=== PATIENT | male | born 1945 | race Caucasian/White ===

== ENCOUNTER → 2024-11-01 | Outpatient (CLI) | payer OTHER ==
[~2024-11-01] MED LIST: AMLO5 PO; ASPI81EC PO; ATEN25 PO; Ativan0.5 MG PO; LISI5 PO; OMEP20ER PO; Prednisone20 MG PO; SUCR1 PO; TAMS.4ER PO
[2024-11-01 12:17] LABS: BASOPHILS ABSOLUTE AUTO 0.03 K/mm3 (0.00-0.23); BASOPHILS PERCENT AUTO 1 % (0-2); EOSINOPHILS ABSOLUTE AUTO 0.12 K/mm3 (0.00-0.68); EOSINOPHILS PERCENT AUTO 2 % (0-6); Hematocrit 39.9 % (37.0-53.0); Hemoglobin 14.4 g/dL (13.5-17.5); IMMATURE GRAN ABSOLUTE AUTO 0.02 K/mm3 (0.00-0.10); IMMATURE GRAN PERCENT AUTO 0 % (0-1); LYMPHOCYTES ABSOLUTE AUTO 1.51 K/mm3 (0.84-5.20); LYMPHOCYTES PERCENT AUTO 24 % (21-46); MONOCYTES ABSOLUTE AUTO 0.41 K/mm3 (0.16-1.47); MONOCYTES PERCENT AUTO 7 % (4-13); Mean Corpuscular HGB Conc 36.1 g/dL (31.5-36.5); Mean Corpuscular Volume 94 fL (80-100); Mean Platelet Volume 9.6 fL (9.1-12.4); NEUTROPHILS ABSOLUTE AUTO 4.21 K/mm3 (1.96-9.15); NEUTROPHILS PERCENT AUTO 67 % (41-73); Platelet Count 262 K/mm3 (150-400); RDW Coefficient Variation 12.5 % (11.7-14.2); Red Blood Cell Count 4.24 M/mm3 (4.30-5.90)
[2024-11-01 12:28] LABS: Albumin, Blood 3.7 g/dL (3.4-5.0); Albumin/Globulin Ratio 1.1 (0.8-1.8); Bilirubin, Total 0.5 mg/dL (0.1-1.0); Bun/Creatinine Ratio 22.4 (12.0-20.0); Calcium, Blood 9.1 mg/dL (8.5-10.1); Creatinine, Blood 0.67 mg/dL (0.60-1.20); Globulin, Blood 3.4 g/dL (2.2-4.0); Potassium, Blood 4.9 mmol/L (3.5-5.5); Total Protein, Blood 7.1 g/dL (6.4-8.2)
== END | disposition home or self-care (01) ==
LOC: LAB 12:13 → LAB SHORT 12:13
PROVIDERS: Family Medicine
DX: R07.89 Other chest pain (principal)
CPT/HCPCS: 80053; 84484; 85025

== ENCOUNTER 2024-12-14 19:01 | Inpatient (IN) | payer OTHER ==
[~2024-12-14] VITALS: Ht 172.7 cm; Wt 70.2 kg
[~2024-12-14 19:01] MED LIST changes: +ASPI81CH PO; -ASPI81EC PO
[2024-12-14 19:28] LABS: BASOPHILS ABSOLUTE AUTO 0.04 K/mm3 (0.00-0.23); BASOPHILS PERCENT AUTO 0 % (0-2); EOSINOPHILS ABSOLUTE AUTO 0.08 K/mm3 (0.00-0.68); EOSINOPHILS PERCENT AUTO 1 % (0-6); Hematocrit 38.1 % (37.0-53.0); Hemoglobin 13.8 g/dL (13.5-17.5); IMMATURE GRAN ABSOLUTE AUTO 0.03 K/mm3 (0.00-0.10); IMMATURE GRAN PERCENT AUTO 0 % (0-1); LYMPHOCYTES ABSOLUTE AUTO 1.69 K/mm3 (0.84-5.20); LYMPHOCYTES PERCENT AUTO 16 % (21-46); MONOCYTES ABSOLUTE AUTO 0.69 K/mm3 (0.16-1.47); MONOCYTES PERCENT AUTO 7 % (4-13); Mean Corpuscular HGB 33.3 pg (26.0-34.0); Mean Corpuscular HGB Conc 36.2 g/dL (31.5-36.5); Mean Corpuscular Volume 92 fL (80-100); Mean Platelet Volume 9.3 fL (9.1-12.4); NEUTROPHILS ABSOLUTE AUTO 8.13 K/mm3 (1.96-9.15); NEUTROPHILS PERCENT AUTO 76 % (41-73); Platelet Count 272 K/mm3 (150-400); RDW Coefficient Variation 12.5 % (11.7-14.2); RDW Standard Deviation 42.1 fL (35.1-46.3); Red Blood Cell Count 4.14 M/mm3 (4.30-5.90); White Blood Cell Count 10.66 K/mm3 (4.00-11.30)
[2024-12-14 19:42] LABS: Albumin, Blood 3.9 g/dL (3.4-5.0); Albumin/Globulin Ratio 1.2 (0.8-1.8); Bilirubin, Total 0.8 mg/dL (0.1-1.0); Bun/Creatinine Ratio 27.2 (12.0-20.0); Calcium, Blood 9.3 mg/dL (8.5-10.1); Creatinine, Blood 0.59 mg/dL (0.60-1.20); Globulin, Blood 3.3 g/dL (2.2-4.0); Potassium, Blood 3.8 mmol/L (3.5-5.5); Total Protein, Blood 7.2 g/dL (6.4-8.2)
[2024-12-15] VITALS (10 sets, daily range): BP systolic 124–170; BP diastolic 69–90
[2024-12-15] MEDS ORDERED: FLU VACC TS2024-25(6MOS UP)/PF 45 MCG/0.5 ML SYRINGE IM ONE (00:10)
[2024-12-15] MEDS ORDERED: CARVEDILOL6.25 MG PO (00:12)
[2024-12-15] MEDS ORDERED: EZETIMIBE10 M6 PO (00:12)
[2024-12-15] MEDS ORDERED: PLAVIX75 MG PO (00:12)
[2024-12-15] MEDS ORDERED: SPIRONOLACTONE25 MG PO (00:12)
[2024-12-15] MEDS ORDERED: LOSA25 PO (00:12)
[2024-12-15] MEDS ORDERED: Dose Adjust by Pharmacy XX STA ×3 (00:49→14:17)
[2024-12-15] MEDS ORDERED: Heparin Sodium,Porcine/0.5 NS 500 ML IV SCH (00:50)
[2024-12-15] MEDS ORDERED: NS 1,000 ML IV SCH (01:00)
[2024-12-15] MEDS ORDERED: Clopidogrel Bisulfate 75 MG Tab PO SCH (01:00)
[2024-12-15 01:06] LABS: BASOPHILS ABSOLUTE AUTO 0.02 K/mm3 (0.00-0.23); BASOPHILS PERCENT AUTO 0 % (0-2); EOSINOPHILS ABSOLUTE AUTO 0.09 K/mm3 (0.00-0.68); EOSINOPHILS PERCENT AUTO 1 % (0-6); Hematocrit 36.2 % (37.0-53.0); Hemoglobin 13.1 g/dL (13.5-17.5); IMMATURE GRAN ABSOLUTE AUTO 0.02 K/mm3 (0.00-0.10); IMMATURE GRAN PERCENT AUTO 0 % (0-1); LYMPHOCYTES ABSOLUTE AUTO 2.39 K/mm3 (0.84-5.20); LYMPHOCYTES PERCENT AUTO 29 % (21-46); MONOCYTES ABSOLUTE AUTO 0.64 K/mm3 (0.16-1.47); MONOCYTES PERCENT AUTO 8 % (4-13); Mean Corpuscular HGB 33.6 pg (26.0-34.0); Mean Corpuscular HGB Conc 36.2 g/dL (31.5-36.5); Mean Corpuscular Volume 93 fL (80-100); NEUTROPHILS ABSOLUTE AUTO 5.24 K/mm3 (1.96-9.15); NEUTROPHILS PERCENT AUTO 62 % (41-73); Platelet Count 249 K/mm3 (150-400); RDW Coefficient Variation 12.5 % (11.7-14.2); RDW Standard Deviation 42.6 fL (35.1-46.3)
[2024-12-15 01:23] LABS: Alanine Aminotransfer (ALT/SGP 38 U/L (12-78); Albumin, Blood 3.6 g/dL (3.4-5.0); Albumin/Globulin Ratio 1.2 (0.8-1.8); Alk Phos 143 U/L (50-136); Anion Gap 12 mmol/L (3-11); Aspartate Aminotrans (AST/SGOT 54 U/L (12-37); Bilirubin, Total 0.8 mg/dL (0.1-1.0); Blood Urea Nitrogen 13 mg/dL (8-24); Bun/Creatinine Ratio 25.2 (12.0-20.0); CO2, Blood 23 mmol/L (21-32); Calcium, Blood 8.4 mg/dL (8.5-10.1); Chloride, Blood 98 mmol/L (98-108); Creatinine, Blood 0.52 mg/dL (0.60-1.20); Globulin, Blood 3.1 g/dL (2.2-4.0); Glomerular Filtration Rate 101 (60-); Glucose, Blood 114 mg/dL (70-99); Potassium, Blood 3.6 mmol/L (3.5-5.5); Sodium, Blood 129 mmol/L (136-145); Total Protein, Blood 6.7 g/dL (6.4-8.2)
[2024-12-15 01:43] LABS: Anti-Xa UFH, PHA Monitoring <0.10 IU/mL; International Normalized Ratio 1.05; Prothrombin Time Results 11.2 Sec (9.7-11.5)
--- NOTE | 2024-12-15 01:45 | NUR ---
New Admit to room PCU 8. Patient comes to room 8 via stretcher from ER. accompanies. Here for chest pain. Patient currently does not have chest pain. States " it went away as soon as I got here." Patient states he has had a previous NV in March of 2024. Patient is voiding. On room air. Skin intact. Full assessment complete. Orientated to room and call light. Fall precautions gone over with patient and family. NPO now. Heparin drip started. Call light within reach. Continue Care.
[2024-12-15] MEDS ORDERED: Morphine Sulfate 10 MG/ML 1MLSYR IV PRN (02:05)
[2024-12-15 02:40] LABS: CHOL/HDL RATIO 2.9; Cholesterol 144 mg/dL (50-200); HDL Cholesterol 50 mg/dL (>39); LDL/HDL RATIO 1.6; Low Density Lipoprotein Chol 79 mg/dL (0-110); Triglycerides 76 mg/dL (30-160); Very Low Density Lipoprot Chol 15 mg/dL (6-32)
[2024-12-15] MEDS ORDERED: Losartan Potassium 25 MG Tab PO ONE (05:55)
[2024-12-15] MEDS ORDERED: Spironolactone 12.5 MG TAB PO ONE (05:55)
--- NOTE | 2024-12-15 06:06 | NUR ---
PATIENT C/O FEELING LIKE HE MIGHT HAVE A BLADDER INFECTION. STATED THAT HE WAS VOIDING ALOT IN SMALL AMOUNTS. BLADDER SCANNED PATIENT FOR >588 ML STRAIGHT CATHED FOR 625 ML. PATIENT STARTED TO C/O OF SHOULDER AND ARM PAIN AT THIS TIME. RESEMBLING THE SAME PAIN THAT BROUGHT HIM INTO THE ER BUT NOT INTENSE. (LAST TROPONIN ELEVATED 1000) CALLED DR RAMIREZ WHO CAME UP TO SEE THE PATIENT. NEW VERBAL ORDERS RECEIVED TO GIVE HIS COZAAR and SPIRONOLACTONE NOW. NOT TO GIVE FLOMAX UNTIL TONIGHT AND TO HOLD ALL OTHER MORNING MEDICATIONS. (SEE VS ARE WNL) WILL UPDATE DAY RN. PATIENT IS NPO MORPHINE GIVEN FOR PAIN. PATIENT APPEARS AND STATES HE IS COMFORTABLE NOW. RATING PAIN AT A 1 ON SCALE OF 0-10. CONTINUE CARE
--- NOTE | 2024-12-15 06:45 | NUR ---
CALL FROM LAB TROPONIN 967. TRENDING DOWN FROM 1000 PRIOR VALUE. WILL UPDATE DAY RN. CONTINUE CARE
[2024-12-15] MEDS ORDERED: Losartan Potassium 25 MG Tab PO SCH (09:00)
[2024-12-15] MEDS ORDERED: Aspirin 81 MG TabEC PO SCH (09:00)
[2024-12-15] MEDS ORDERED: AmLODIPine Besylate 5 MG Tab PO SCH (09:00)
[2024-12-15] MEDS ORDERED: Spironolactone 12.5 MG TAB PO SCH (09:00)
[2024-12-15] MEDS ORDERED: Carvedilol 6.25 MG Tab PO SCH (09:00)
[2024-12-15] MEDS ORDERED: Tamsulosin HCl 0.4 MG Cap PO SCH ×2 (09:00→21:00)
[2024-12-15] MEDS ORDERED: Ezetimibe 10 MG Tab PO SCH (09:00)
[2024-12-15] MEDS ORDERED: Polyethylene Glycol 3350 17 gm PO PRN (09:20)
--- NOTE | 2024-12-15 14:52 | NUR ---
The pt continues to have no symptoms of chest pain/tightness/pressure nor dyspnea. Heparin gtt ongoing, no changes to rate nor dose today.
--- NOTE | 2024-12-15 15:02 | NUR ---
"Spiriyual Care | Nurse/Pt. request Pt. is awake in bed when he welcomes my visit. Pt. is pleasant. Spouse is at bedside. Facilitated a life review and established some rapport. Pt. verbalized that they are new to the community. Pt. also verbalized the diffficult celine predicament that he finds finds himself with complications that prevent typical cardiac treatments . Consider matters of abby and belief. Pt. displays evidence of being both resigned to his condition, and hopeful for what is next. Prayed with the Pt. Pt. 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
--- NOTE | 2024-12-15 18:33 | NUR ---
Pt is resting in bed; he states that he is feeling fine and has no needs at this time.
--- NOTE | 2024-12-15 21:33 | NUR ---
MD NOTIFIED DR. RAMIREZ MADE AWARE OF PT HAVING CHEST PAIN AFTER USING THE URINAL AT BEDSIDE AND THAT THE PAIN RESOLVED AFTER EKG WAS TAKEN. MD WANTS TO DO MORPHINE IF CHEST PAIN LAST LONGER THAN 5 MINUTES. MD ALSO UPDATED ON PAITIENTS HISTORY.
[2024-12-16 03:20] VITALS: BP 139/73
[2024-12-16 04:35] LABS: BASOPHILS ABSOLUTE AUTO 0.03 K/mm3 (0.00-0.23); BASOPHILS PERCENT AUTO 1 % (0-2); EOSINOPHILS ABSOLUTE AUTO 0.12 K/mm3 (0.00-0.68); EOSINOPHILS PERCENT AUTO 2 % (0-6); Hematocrit 34.5 % (37.0-53.0); Hemoglobin 12.2 g/dL (13.5-17.5); IMMATURE GRAN ABSOLUTE AUTO 0.01 K/mm3 (0.00-0.10); IMMATURE GRAN PERCENT AUTO 0 % (0-1); LYMPHOCYTES PERCENT AUTO 37 % (21-46); MONOCYTES ABSOLUTE AUTO 0.58 K/mm3 (0.16-1.47); MONOCYTES PERCENT AUTO 9 % (4-13); Mean Corpuscular HGB 34.3 pg (26.0-34.0); Mean Corpuscular HGB Conc 35.4 g/dL (31.5-36.5); Mean Corpuscular Volume 97 fL (80-100); Mean Platelet Volume 9.7 fL (9.1-12.4); NEUTROPHILS ABSOLUTE AUTO 3.28 K/mm3 (1.96-9.15); NEUTROPHILS PERCENT AUTO 51 % (41-73); Platelet Count 201 K/mm3 (150-400); RDW Coefficient Variation 13.1 % (11.7-14.2); RDW Standard Deviation 46.5 fL (35.1-46.3); Red Blood Cell Count 3.56 M/mm3 (4.30-5.90); White Blood Cell Count 6.42 K/mm3 (4.00-11.30)
[2024-12-16 04:58] LABS: Anion Gap 9 mmol/L (3-11); Blood Urea Nitrogen 13 mg/dL (8-24); CO2, Blood 24 mmol/L (21-32); Calcium, Blood 8.3 mg/dL (8.5-10.1); Chloride, Blood 105 mmol/L (98-108); Creatinine, Blood 0.52 mg/dL (0.60-1.20); Glomerular Filtration Rate 101 (60-); Glucose, Blood 93 mg/dL (70-99); Phosphorus, Blood 3.2 mg/dL (2.5-4.9); Potassium, Blood 3.7 mmol/L (3.5-5.5); Sodium, Blood 134 mmol/L (136-145)
--- NOTE | 2024-12-16 06:04 | NUR ---
SHIFT SUMMARY PT IS A&O X4, ABLE TO MAKE NEEDS KNOWN, OBEYS COMMANDS, MOVING ALL EXTREMITIES EQUALLY AND WITH PURPOSE, PT EDUCATED TO CALL BEFORE AMBULATING. CONTINUOUS SPO2, SPO2 GREATER 95% ON RA. PT DENIES SOB T/O THIS SHIFT, LUNGS SOUND CLEAR T/O. CONTINUOUS TELE MONITORING, SINUS 60 S, ONE EPISODE CHEST PAIN / PT DENIES IT FEELING DIFFERENT OR WORSE THAN WHEN HE ORIGINALLY CAME INTO THE HOSPITAL/MEDICATED PER ORDERS/EKG TAKEN/MD NOTIFED, BP STABLE WITH MAP GREATER THAN 65/ PT DID BECOME HYPERTENSIVE WITH SBP IN 170 S DURING EPISODE OF CHEST PAIN BUT RESOLVED WHEN CHEST PAIN SUBSIDED, PULSES PRESENT T/O. BOWEL TONES PRESENT IN ALL 4Q, PT DENIES FEELINGS OF CONSTIPATION. PT VOIDING IND INTO URINAL AT SIDE OF BED, URINE YELLOW IN COLOR. BED LOWEST POSITION, CALL LIGHT IN REACH, AWAITING TO GIVE REPORT TO ONCOMING RN.
[2024-12-16] MEDS ORDERED: Clarify Drug Order XX ONE (06:25)
[2024-12-16 08:14] VITALS: BP 165/83
[2024-12-16] MEDS ORDERED: Isosorbide Mononitrate 30 MG TABCR PO SCH (10:00)
[2024-12-16] MEDS ORDERED: Pantoprazole Sodium 40 MG Tab PO SCH (10:00)
[2024-12-16] MEDS ORDERED: Potassium Chloride 20 MEQ/15 ML UDC PO ONE (10:00)
--- NOTE | 2024-12-16 11:11 | NUR ---
am note this rn assumed care at 0700. vital signs stable. tele is sinus rhythm 60-70s. patient is alert and oriented x4. neuro is intact. perrla. patient is able to make needs known and uses call light appropriately. patient is independent in adls. denies pain, chest pain/pressure or shortness of breath. see shift assessment for further detials. MD [place] in to see patient and discussed patient remaining on heparin drip and to be able to go home tomorrow. plan of care is up to date.
[2024-12-16 11:35] VITALS: BP 120/66
[2024-12-16 16:44] VITALS: BP 132/77
--- NOTE | 2024-12-16 17:10 | NUR ---
shift summary patient vitals remain stable. tele sinus rhythm 67. patient reports off and on chest pain with exertion and goes away with rest. patient neuro remains unchaged and intact. plan remains the same, to go home once heparin drip is at 48 hours. no acute changes this shift.
[2024-12-16 19:16] VITALS: BP 123/70
[2024-12-16 23:36] VITALS: BP 117/82
[2024-12-17] MEDS ORDERED: Acetaminophen 325 MG TABLET PO PRN (00:35)
[2024-12-17 04:00] VITALS: BP 131/77
[2024-12-17 04:21] LABS: BASOPHILS ABSOLUTE AUTO 0.02 K/mm3 (0.00-0.23); BASOPHILS PERCENT AUTO 0 % (0-2); EOSINOPHILS ABSOLUTE AUTO 0.15 K/mm3 (0.00-0.68); EOSINOPHILS PERCENT AUTO 2 % (0-6); Hematocrit 30.7 % (37.0-53.0); Hemoglobin 10.7 g/dL (13.5-17.5); IMMATURE GRAN ABSOLUTE AUTO 0.03 K/mm3 (0.00-0.10); IMMATURE GRAN PERCENT AUTO 0 % (0-1); LYMPHOCYTES PERCENT AUTO 24 % (21-46); MONOCYTES ABSOLUTE AUTO 0.84 K/mm3 (0.16-1.47); MONOCYTES PERCENT AUTO 9 % (4-13); Mean Corpuscular HGB 33.8 pg (26.0-34.0); Mean Corpuscular HGB Conc 34.9 g/dL (31.5-36.5); Mean Corpuscular Volume 97 fL (80-100); Mean Platelet Volume 9.6 fL (9.1-12.4); NEUTROPHILS ABSOLUTE AUTO 6.02 K/mm3 (1.96-9.15); NEUTROPHILS PERCENT AUTO 65 % (41-73); Platelet Count 193 K/mm3 (150-400); RDW Coefficient Variation 13.2 % (11.7-14.2); Red Blood Cell Count 3.17 M/mm3 (4.30-5.90); White Blood Cell Count 9.26 K/mm3 (4.00-11.30)
[2024-12-17 04:42] LABS: Albumin, Blood 2.8 g/dL (3.4-5.0); Anion Gap 10 mmol/L (3-11); Blood Urea Nitrogen 13 mg/dL (8-24); Bun/Creatinine Ratio 22.3 (12.0-20.0); CO2, Blood 21 mmol/L (21-32); Calcium, Blood 8.2 mg/dL (8.5-10.1); Chloride, Blood 105 mmol/L (98-108); Creatinine, Blood 0.58 mg/dL (0.60-1.20); Glomerular Filtration Rate 98 (60-); Glucose, Blood 89 mg/dL (70-99); Phosphorus, Blood 3.6 mg/dL (2.5-4.9); Potassium, Blood 3.8 mmol/L (3.5-5.5); Sodium, Blood 132 mmol/L (136-145)
--- NOTE | 2024-12-17 06:15 | NUR ---
SHIFT SUMMARY PT IS A&O X4, ABLE TO MAKE NEEDS KNOWN, OBEYS COMMANDS, MOVING ALL EXTREMITIES EQUALLY AND WITH PURPOSE, PT EDUCATED TO CALL BEFORE AMBULATING. CONTINUOUS SPO2, SPO2 GREATER 95% ON RA. PT DENIES SOB T/O THIS SHIFT, LUNGS SOUND CLEAR T/O. CONTINUOUS TELE MONITORING, SINUS 60 S, PT DENIES CHEST P/P T/O THIS SHIFT EVEN WITH ACTIVITY, BP STABLE WITH MAP GREATER THAN 65, PULSES PRESENT T/O. BOWEL TONES PRESENT IN ALL 4Q, PT DENIES FEELINGS OF CONSTIPATION BUT WANTED MIRILAX BECAUSE THE FOOD HE ATE CAN CAUSE HIM TO BE PLUGGED UP . PT VOIDING IND INTO URINAL AT SIDE OF BED, URINE YELLOW IN COLOR. PT REPORTED HEAD ACHE DURING THE NIGHT, PERPARIS, CALLED MD AND GOT ORDERS FOR TYLENOL, TYLENOL ELEVATED PAIN. PT ALSO REPORTING ALL OVER BODY ACHE THAT HE STATES IS FROM LAYING ON HIS BACK, OFFERED TO ASSIST PT INTO NEW POSITION OR PROVIDE RECLINE/PT DECLINED. BED LOWEST POSITION, CALL LIGHT IN REACH, AWAITING TO GIVE REPORT TO ONCOMING RN.
[2024-12-17] MEDS ORDERED: Dose Adjust by Pharmacy XX STA (06:31)
[2024-12-17 09:00] VITALS: BP 114/58
--- NOTE | 2024-12-17 10:15 | NUR ---
AM NOTE this rn assumed care at 0700. vital signs stable. tele sinus rhythm 67. patient is alert and oriented x4. neuro is intact. patient is able to make needs known and uses call light appropriately. patient denies pain, chest pain/pressure or shortness of breath. patient lung sounds clear. see shift assessment for further detials. Md [place] in to see patient and heparin drip has been stopped this morning and plan to go home today.
[2024-12-17 11:14] VITALS: BP 126/66
[2024-12-17] MEDS ORDERED: PANTOPRAZOLE SO20 M1 PO (12:49)
[2024-12-17] MEDS ORDERED: Isosorbide Mono30 MG PO (12:49)
[2024-12-17] MEDS ORDERED: SPIR25 PO (12:50)
--- NOTE | 2024-12-17 13:35 | NUR ---
DISCHARGE UPDATE DISCHARGE PACKET GONE OVER WITH PT AND PT AT 1320. PT DISCHARGED AT 1335 VIA WHEELCAHIR AND ON RA. PT ABLE TO TRANSFER SELF TO AND FROM WHEELCHAIR ON HIS OWN, TOLERATED WELL. DISCHARGE PACKET AND P[ERSONAL BELONGINGS WITH PT AT TIME OF DISCHARGE.
[2024-12-17] MEDS ORDERED: Ezetimibe 10 MG Tab PO SCH (18:00)
== END 2024-12-17 13:32 | disposition home or self-care (01) | DRG 281 ==
LOC: ER 19:01 → PCU 19:02 → ERHOLD 19:02 → PCU 12-15 00:10 → ERHOLD 12-15 00:25 → PCU 12-15 13:57
PROVIDERS: Emergency Medicine; Family Medicine; Student in an Organized Health Care Education/Training Program; ADMIT Internal Medicine
DX: I21.4 Non-ST elevation (NSTEMI) myocardial infarction (principal); E87.1 Hypo-osmolality and hyponatremia; I50.30 Unspecified diastolic (congestive) heart failure; N40.0 Benign prostatic hyperplasia without lower urinary tract symptoms; Z66 Do not resuscitate; R74.01 Elevation of levels of liver transaminase levels; E78.5 Hyperlipidemia, unspecified; I25.10 Atherosclerotic heart disease of native coronary artery without angina pectoris; I11.0 Hypertensive heart disease with heart failure; I25.2 Old myocardial infarction; Z88.8 Allergy status to other drugs, medicaments and biological substances; Z79.82 Long term (current) use of aspirin; Z87.891 Personal history of nicotine dependence; Z79.02 Long term (current) use of antithrombotics/antiplatelets
CPT/HCPCS: 36415; 51701; 71046; 80053; 80061; 80069; 82330; 83036; 83690; 83880; 84443; 84484; 85025; 85520; 85610; 85730; 93005; 93010; 93306; 94762; 99285-25; A9270; G0378; J1644; J2270; J7030